=== PATIENT | male | born 1960 | race African-American/Black ===

== ENCOUNTER 2018-11-25 20:08 | Inpatient (IN) | payer BC, OTHER ==
[~2018-11-25] VITALS: Ht 167.6 cm; Wt 86.4 kg
[~2018-11-25 20:08] MED LIST: DILT180C3 PO; METF-414 PO; METO25TA6 PO; PRAV40TA58 PO; PRED1TAB PO; PROG1 PO; RANI300T4 PO; TAMS0.4C31 PO
[2018-11-25] MEDS ORDERED: ONDANSETRON HCL 4MG/2ML INJ ONE (20:53)
[2018-11-25] MEDS ORDERED: ONDANSETRON HCL 4MG/2ML INJ IV ONE (21:30)
[2018-11-25] MEDS ORDERED: ASPIRIN 81MG TABLET PO ONE ×2 (21:30→22:45)
[2018-11-25 21:35] LABS: CLARITY URINE CLEAR (CLEAR); COLOR URINE YELLOW (YELLOW); KETONES URINE NEGATIVE (NEGATIVE); LEUKOCYTE ESTERASE URINE NEGATIVE (NEGATIVE); NITRITE URINE NEGATIVE (NEGATIVE); OCCULT BLOOD URINE NEGATIVE (NEGATIVE); PH URINE 6.5 (4.5-8.0); PROTEIN URINE NEGATIVE (NEGATIVE); SPECIFIC GRAVITY URINE 1.005 (1.005-1.030); UROBILINOGEN URINE 0.2 E.U./dL (0.2-1.0)
[2018-11-25 21:38] LABS: HEMATOCRIT. 45.3 % (42.0-52.0); HEMOGLOBIN. 15.7 g/dL (14.0-18.0); MEAN CORPUSCULAR HEMOGLOBIN 35.3 pg (28.0-32.0); MEAN CORPUSCULAR VOLUME 102.1 fL (80.0-94.0); MEAN PLATELET VOLUME 8.9 fl (7.4-10.4); PLATELET 413 x1000/uL (130-400); RED BLOOD CELL COUNT 4.44 mill/uL (4.7-6.1); RED CELL DISTRIBUTION WIDTH 15.6 % (11.6-14.6)
[2018-11-25 21:42] LABS: CHLORIDE 91 mEq/L (98-107); INR 1.1; PROTHROMBIN TIME 10.6 sec (9.1-11.1)
[2018-11-25] MEDS ORDERED: SODIUM CHLORIDE 0.9% 1,000 ML IV ONE ×2 (21:45→22:15)
[2018-11-25 21:46] LABS: ETHANOL BLOOD 13 mg/dL
[2018-11-25 21:49] LABS: *AMPHETAMINES SCREEN URINE NEGATIVE (NEGATIVE); *BARBITURATES SCREEN URINE NEGATIVE (NEGATIVE); *BENZODIAZEPINES SCREEN URINE NEGATIVE (NEGATIVE); *COCAINE SCREEN URINE NEGATIVE (NEGATIVE); METHADONE URINE SCREEN NEGATIVE (NEGATIVE); OPIATES URINE SCREEN NEGATIVE (NEGATIVE); PHENCYCLIDINE URINE SCREEN NEGATIVE (NEGATIVE)
[2018-11-25 21:50] LABS: CANNABINOID URINE SCREEN NEGATIVE (NEGATIVE)
[2018-11-25 22:02] LABS: PLATELET ESTIMATE INCREASED
[2018-11-25] MEDS ORDERED: MAGNESIUM/ALUMINUM HYDROXIDE/SIMETHICONE 30ML UDC PO PRN (23:45)
[2018-11-25] MEDS ORDERED: DIPHENHYDRAMINE 50MG/ML VIAL IV PRN (23:45)
[2018-11-25] MEDS ORDERED: ONDANSETRON HCL 4MG/2ML INJ IV PRN (23:45)
[2018-11-25] MEDS ORDERED: DEXTROSE 50% WATER 50ML SYRINGE IV PRN ×2 (23:45)
[2018-11-25] MEDS ORDERED: ACETAMINOPHEN 325MG TABLET PO PRN (23:45)
[2018-11-26] VITALS (8 sets, daily range): BP systolic 112–143; BP diastolic 65–93
[2018-11-26] MEDS ORDERED: DILTIAZEM HCL 180MG CAPSULE CD 24HR PO SCH (01:00)
[2018-11-26] MEDS ORDERED: REPA1TAB5 PO (03:41)
[2018-11-26] MEDS ORDERED: B12/1TAB MT (03:41)
[2018-11-26] MEDS: SODIUM CHLORIDE 0.9% INJ 3ML FLUSH IVF SCH ×3 (05:07→21:45)
[2018-11-26] MEDS: BLOOD SUGAR DIAGNOSTIC STRIP TEST SCH ×4 (06:16→21:45)
[2018-11-26] MEDS ORDERED: BLOOD SUGAR DIAGNOSTIC STRIP TEST SCH (07:20)
[2018-11-26] MEDS: INSULIN LISPRO 100 UNITS/ML SUBCUT SCH ×4 (07:50→21:00)
[2018-11-26] MEDS ORDERED: METFORMIN HCL 500MG TABLET PO SCH (07:50)
[2018-11-26] MEDS: CYANOCOBALAMIN 1000MCG TABLET PO SCH (08:44)
[2018-11-26] MEDS: METOPROLOL TARTRATE 50MG TABLET PO SCH ×2 (08:45→21:45)
[2018-11-26] MEDS: FAMOTIDINE 20MG TABLET PO SCH ×2 (08:45→18:39)
[2018-11-26] MEDS: PREDNISONE 5MG TABLET PO SCH (08:45)
[2018-11-26] MEDS: APIXABAN 5 MG TABLET PO SCH ×2 (08:45→18:39)
[2018-11-26] MEDS: TACROLIMUS 1MG CAPSULE PO SCH (08:46)
[2018-11-26] MEDS: TAMSULOSIN HCL 0.4MG SR CAPSULE PO SCH (08:46)
[2018-11-26] MEDS: REPAGLINIDE 1MG TABLET PO SCH ×3 (08:46→18:39)
[2018-11-26] MEDS: ASPIRIN 81MG EC TABLET PO SCH (08:47)
[2018-11-26] MEDS ORDERED: TACROLIMUS 1MG CAPSULE PO SCH ×2 (09:00→17:00)
[2018-11-26] MEDS ORDERED: ASPIRIN 325MG EC TABLET PO SCH (09:00)
[2018-11-26] MEDS ORDERED: METOPROLOL TARTRATE 25MG TABLET PO SCH (09:00)
[2018-11-26] MEDS ORDERED: PREDNISONE 1MG TABLET PO SCH (09:00)
[2018-11-26] MEDS ORDERED: LORAZEPAM 2MG/ML CPJ IV NR (11:15)
[2018-11-26] MEDS ORDERED: INFLUENZA VIRUS VACCINE(AFLURIA) 0.5ML SYR IM ONE (12:00)
[2018-11-26] MEDS ORDERED: ATORVASTATIN CALCIUM 40MG TABLET PO SCH (21:00)
[2018-11-26] MEDS ORDERED: ATORVASTATIN CALCIUM 20MG TABLET PO SCH (21:00)
[2018-11-27 00:12] VITALS: BP 115/73
[2018-11-27 04:00] VITALS: BP 124/80
[2018-11-27] MEDS: SODIUM CHLORIDE 0.9% INJ 3ML FLUSH IVF SCH (05:44)
[2018-11-27] MEDS: BLOOD SUGAR DIAGNOSTIC STRIP TEST SCH (06:09)
[2018-11-27 06:35] LABS: HEMATOCRIT. 34.9 % (42.0-52.0); HEMOGLOBIN. 12.1 g/dL (14.0-18.0); MEAN CORPUSCULAR HEMOGLOBIN 35.1 pg (28.0-32.0); MEAN CORPUSCULAR VOLUME 101.2 fL (80.0-94.0); MEAN PLATELET VOLUME 9.1 fl (7.4-10.4); PLATELET 347 x1000/uL (130-400); RED BLOOD CELL COUNT 3.45 mill/uL (4.7-6.1); RED CELL DISTRIBUTION WIDTH 15.7 % (11.6-14.6)
[2018-11-27 06:45] LABS: CHLORIDE 101 mEq/L (98-107)
[2018-11-27 06:57] LABS: PHOSPHORUS 3.3 mg/dL (2.5-4.9)
[2018-11-27] MEDS: INSULIN LISPRO 100 UNITS/ML SUBCUT SCH (07:50)
[2018-11-27] MEDS: CYANOCOBALAMIN 1000MCG TABLET PO SCH (07:50)
[2018-11-27] MEDS: REPAGLINIDE 1MG TABLET PO SCH (07:50)
[2018-11-27 08:38] VITALS: BP 124/84
[2018-11-27] MEDS: METOPROLOL TARTRATE 50MG TABLET PO SCH (09:00)
[2018-11-27] MEDS: ASPIRIN 81MG EC TABLET PO SCH (09:19)
[2018-11-27] MEDS: APIXABAN 5 MG TABLET PO SCH (09:19)
[2018-11-27] MEDS: FAMOTIDINE 20MG TABLET PO SCH (09:20)
[2018-11-27] MEDS: TACROLIMUS 1MG CAPSULE PO SCH (09:20)
[2018-11-27] MEDS: TAMSULOSIN HCL 0.4MG SR CAPSULE PO SCH (09:20)
[2018-11-27] MEDS: PREDNISONE 5MG TABLET PO SCH (09:20)
[2018-11-27] MEDS ORDERED: POTASSIUM CHLORIDE 20MEQ TABLET SR PO NR (11:00)
[2018-11-27] MEDS ORDERED: MAGNESIUM OXIDE 400MG TABLET PO SCH (11:00)
[2018-11-27 12:10] VITALS: BP 125/82
[2018-11-27] MEDS ORDERED: MAGNESIUM 2 G PREMIX 50 ML IV NR (13:00)
[2018-11-27 13:02] VITALS: BP 125/82
[2018-11-27 13:13] LABS: PLATELET ESTIMATE NORMAL
== END 2018-11-27 13:35 | disposition home or self-care (01) | DRG 64 ==
LOC: ER 20:08 → EDBEDREQ 22:41 → EDBEDREQTM 22:41 → ENRESERV 11-26 02:15 → 6WST 11-26 02:40
PROVIDERS: ADMIT Internal Medicine; ATTEND Internal Medicine
DX: I63.9 Cerebral infarction, unspecified (principal); N18.6 End stage renal disease; E46 Unspecified protein-calorie malnutrition; E87.1 Hypo-osmolality and hyponatremia; E87.2 Acidosis; I13.11 Hypertensive heart and chronic kidney disease without heart failure, with stage 5 chronic kidney disease, or end stage renal disease; Z94.0 Kidney transplant status; D64.9 Anemia, unspecified; D75.89 Other specified diseases of blood and blood-forming organs; E11.22 Type 2 diabetes mellitus with diabetic chronic kidney disease; E11.649 Type 2 diabetes mellitus with hypoglycemia without coma; E78.00 Pure hypercholesterolemia, unspecified; E78.5 Hyperlipidemia, unspecified; E83.42 Hypomagnesemia; E87.6 Hypokalemia; I48.0 Paroxysmal atrial fibrillation; Z60.2 Problems related to living alone; Z96.643 Presence of artificial hip joint, bilateral; Z80.9 Family history of malignant neoplasm, unspecified; Z82.49 Family history of ischemic heart disease and other diseases of the circulatory system; Z90.81 Acquired absence of spleen; Z99.2 Dependence on renal dialysis; Z79.899 Other long term (current) drug therapy; Z68.30 Body mass index [BMI] 30.0-30.9, adult
CPT/HCPCS: 36415; 70551; 71045; 80061; 80305; 80320; 82010; 82962; 83036; 83605; 83735; 83880; 84100; 84484; 90686; 93005; 93880; 96374; 97162; 97165; 99285; J2060; J2405; J3475; J7507; J7512; G0480

== ENCOUNTER 2020-03-07 06:51 | Inpatient (IN) | payer BC, MEDICAID ==
[~2020-03-07] VITALS: Ht 182.9 cm; Wt 78.5 kg
[~2020-03-07 06:51] MED LIST changes: -DILT180C3 PO; +DILT180C87 PO; +FLUC200T51 MT; +LEVO500T2 MT; -METF-414 PO; -PRED1TAB PO; -PROG1 PO; +REPA1TAB5 PO
[2020-03-07] MEDS ORDERED: SODIUM CHLORIDE 0.9% 1,000 ML IV ONE (06:59)
[2020-03-07 07:49] LABS: HEMATOCRIT. 43.9 % (42.0-52.0); HEMOGLOBIN. 14.6 g/dL (14.0-18.0); MEAN CORPUSCULAR HEMOGLOBIN 29.6 pg (28.0-32.0); MEAN CORPUSCULAR VOLUME 89.1 fL (80.0-94.0); MEAN PLATELET VOLUME 10.1 fl (7.4-10.4); PLATELET 319 x1000/uL (130-400); RED BLOOD CELL COUNT 4.93 mill/uL (4.7-6.1); RED CELL DISTRIBUTION WIDTH 17.3 % (11.6-14.6)
[2020-03-07 08:01] LABS: PROTHROMBIN TIME 10.8 sec (9.6-11.0)
[2020-03-07 08:18] LABS: CLARITY URINE CLEAR (CLEAR); COLOR URINE YELLOW (YELLOW); KETONES URINE NEGATIVE (NEGATIVE); LEUKOCYTE ESTERASE URINE 1+ (NEGATIVE); NITRITE URINE NEGATIVE (NEGATIVE); OCCULT BLOOD URINE 1+ (NEGATIVE); PROTEIN URINE TRACE (NEGATIVE); SPECIFIC GRAVITY URINE 1.021 (1.005-1.030); UROBILINOGEN URINE 0.2 E.U./dL (0.2-1.0)
[2020-03-07 08:25] LABS: BG BASE EXCESS -9.7 mmol/L (-2.0-2.0); BG CARBOXYHEMOGLOBIN 0.3 % (0.5-1.5); BG DEOXYHEMOGLOBIN 3.1 % (0.0-5.0); BG FRACTION INSPIRED OXYGEN 50; BG METHEMOGLOBIN 0.2 % (0.0-1.5); BG OXYGEN SATURATION 96.9 % (92.0-98.5); BG OXYHEMOGLOBIN 96.4 % (94.0-97.0); BG PCO2 29.8 mmHg (35.0-45.0); BG PH 7.321 (7.350-7.450); BG PO2 96.7 mmHg (75.0-100.0); BG SAMPLE SITE RIGHT RADIAL; BG TOTAL HEMOGLOBIN 12.8 g/dL (12.0-18.0); BG VENT MODE MASK - SIMPLE
[2020-03-07] MEDS ORDERED: CEFTRIAXONE 1 G PREMIX 50 ML IV ONE (08:30)
[2020-03-07 08:39] LABS: *AMPHETAMINES SCREEN URINE NEGATIVE (NEGATIVE)
[2020-03-07 08:40] LABS: *BARBITURATES SCREEN URINE NEGATIVE (NEGATIVE); *BENZODIAZEPINES SCREEN URINE NEGATIVE (NEGATIVE); *COCAINE SCREEN URINE NEGATIVE (NEGATIVE); METHADONE URINE SCREEN NEGATIVE (NEGATIVE); OPIATES URINE SCREEN NEGATIVE (NEGATIVE); PHENCYCLIDINE URINE SCREEN NEGATIVE (NEGATIVE)
[2020-03-07 08:41] LABS: CANNABINOID URINE SCREEN NEGATIVE (NEGATIVE)
[2020-03-07 08:42] LABS: CHLORIDE 91 mEq/L (98-107)
[2020-03-07 08:46] LABS: ETHANOL BLOOD < 10 mg/dL
[2020-03-07] MEDS ORDERED: SODIUM BICARBONATE 8.4% 1 MEQ/ML 50ML SYR IV ONE (09:00)
[2020-03-07] MEDS ORDERED: DEXTROSE 50% WATER 50ML SYRINGE IV ONE (09:00)
[2020-03-07] MEDS ORDERED: CALCIUM CHLORIDE 1GM/10ML SYR IV ONE (09:00)
[2020-03-07] MEDS: INSULIN REGULAR (HUMULIN R) 300UNITS/3ML IV ONE ×2 (09:30→10:16)
[2020-03-07 10:23] LABS: PLATELET ESTIMATE NORMAL
[2020-03-07] MEDS ORDERED: DEXTROSE 50% WATER 50ML SYRINGE IV PRN (12:00)
[2020-03-07] MEDS ORDERED: ACETAMINOPHEN 325MG TABLET PO PRN (12:00)
[2020-03-07] MEDS ORDERED: HYDRALAZINE 20MG/ML VIAL IV PRN (12:00)
[2020-03-07] MEDS: PREDNISONE 20MG TABLET PO SCH (12:33)
[2020-03-07] MEDS: SODIUM CHLORIDE 0.9% 1,000 ML IV SCH (13:16)
[2020-03-07] MEDS: BLOOD SUGAR DIAGNOSTIC STRIP TEST SCH ×3 (13:29→21:15)
[2020-03-07] MEDS: ONDANSETRON HCL 4MG/2ML INJ IV PRN (13:36)
[2020-03-07] MEDS: INSULIN LISPRO 100 UNITS/ML SUBCUT SCH ×3 (14:46→21:20)
[2020-03-07] MEDS: SODIUM POLYSTYRENE SULFONATE 15 G/60 ML BOT PO NR ×2 (14:46→17:47)
[2020-03-07] MEDS ORDERED: IPRATROPIUM/ALBUTEROL 0.5-3(2.5)MG/3ML NEB HHN PRN (15:45)
[2020-03-07] MEDS ORDERED: TRAZODONE HCL 50MG TABLET PO PRN (21:00)
[2020-03-07] MEDS: PANTOPRAZOLE SODIUM 40 MG/VIAL IV SCH (21:39)
[2020-03-07 22:00] VITALS: BP 143/83
[2020-03-08] VITALS (12 sets, daily range): BP systolic 89–143; BP diastolic 37–78
[2020-03-08] MEDS: SODIUM CHLORIDE 0.9% 1,000 ML IV SCH ×3 (00:33→17:09)
[2020-03-08] MEDS: ONDANSETRON HCL 4MG/2ML INJ IV PRN ×2 (02:35→15:54)
[2020-03-08] MEDS ORDERED: ALTEPLASE 2MG/VIAL ITC NR (05:15)
[2020-03-08] MEDS: BLOOD SUGAR DIAGNOSTIC STRIP TEST SCH ×4 (08:16→21:20)
[2020-03-08] MEDS: INSULIN LISPRO 100 UNITS/ML SUBCUT SCH ×4 (08:27→21:21)
[2020-03-08] MEDS: HEPARIN 5000 UNITS/ML VIAL SUBCUT SCH ×2 (09:00→21:20)
[2020-03-08] MEDS ORDERED: TACROLIMUS 1MG CAPSULE PO SCH (10:00)
[2020-03-08] MEDS ORDERED: INSULIN GLARGINE UD 100 UNITS/ML SYR SUBCUT SCH (10:00)
[2020-03-08] MEDS ORDERED: DILTIAZEM HCL 5MG/ML 5ML VIAL IV NR (13:00)
[2020-03-08] MEDS: PREDNISONE 20MG TABLET PO SCH (13:22)
[2020-03-08] MEDS: TACROLIMUS 1MG CAPSULE PO SCH ×2 (13:22→17:08)
[2020-03-08] MEDS: PANTOPRAZOLE SODIUM 40 MG/VIAL IV SCH ×2 (13:27→21:20)
[2020-03-08] MEDS ORDERED: DILTIAZEM HCL 125 MG in DEXT 5% WATER 100 ML IV SCH (14:00)
[2020-03-08] MEDS ORDERED: CEFEPIME 1,000 MG in DEXTROSE 5% WATER 50 ML IV SCH (14:00)
[2020-03-08 18:07] LABS: CHLORIDE 101 mEq/L (98-107)
[2020-03-08 18:12] LABS: HEMATOCRIT. 35.1 % (42.0-52.0); HEMOGLOBIN. 11.7 g/dL (14.0-18.0); MEAN CORPUSCULAR HEMOGLOBIN 29.6 pg (28.0-32.0); MEAN CORPUSCULAR VOLUME 89.1 fL (80.0-94.0); MEAN PLATELET VOLUME 10.5 fl (7.4-10.4); PLATELET 173 x1000/uL (130-400); RED BLOOD CELL COUNT 3.94 mill/uL (4.7-6.1); RED CELL DISTRIBUTION WIDTH 16.9 % (11.6-14.6)
[2020-03-08 19:31] LABS: PLATELET ESTIMATE NORMAL
[2020-03-09] VITALS (12 sets, daily range): BP systolic 100–148; BP diastolic 52–86
[2020-03-09] MEDS: SODIUM CHLORIDE 0.9% 1,000 ML IV SCH ×3 (03:48→22:41)
[2020-03-09 07:05] LABS: HEMATOCRIT. 28.9 % (42.0-52.0); HEMOGLOBIN. 9.8 g/dL (14.0-18.0); MEAN CORPUSCULAR HEMOGLOBIN 29.7 pg (28.0-32.0); MEAN CORPUSCULAR VOLUME 87.4 fL (80.0-94.0); MEAN PLATELET VOLUME 9.9 fl (7.4-10.4); PLATELET 229 x1000/uL (130-400); RED CELL DISTRIBUTION WIDTH 16.8 % (11.6-14.6)
[2020-03-09 07:06] LABS: CHLORIDE 104 mEq/L (98-107)
[2020-03-09] MEDS: BLOOD SUGAR DIAGNOSTIC STRIP TEST SCH ×4 (07:30→21:00)
[2020-03-09] MEDS: PREDNISONE 20MG TABLET PO SCH (08:37)
[2020-03-09] MEDS: HEPARIN 5000 UNITS/ML VIAL SUBCUT SCH ×2 (08:39→21:00)
[2020-03-09] MEDS: INSULIN LISPRO 100 UNITS/ML SUBCUT SCH ×4 (08:42→22:04)
[2020-03-09] MEDS: TACROLIMUS 1MG CAPSULE PO SCH ×2 (08:50→17:03)
[2020-03-09] MEDS ORDERED: METOPROLOL TARTRATE 25MG TABLET PO NR (10:15)
[2020-03-09 10:52] LABS: PLATELET ESTIMATE NORMAL
[2020-03-09] MEDS: PANTOPRAZOLE SODIUM 40 MG/VIAL IV SCH ×2 (13:01→22:02)
[2020-03-09] MEDS: MAGNESIUM GLUCONATE 500MG TABLET PO SCH ×2 (13:01→17:03)
[2020-03-09] MEDS: INSULIN GLARGINE UD 100 UNITS/ML SYR SUBCUT SCH (13:03)
[2020-03-09] MEDS: AZITHROMYCIN 500 MG TABLET PO SCH (17:03)
[2020-03-09] MEDS: METOPROLOL TARTRATE 25MG TABLET PO SCH (22:03)
[2020-03-10] VITALS (22 sets, daily range): BP systolic 100–160; BP diastolic 21–82
[2020-03-10 05:35] LABS: CHLORIDE 111 mEq/L (98-107); HEMATOCRIT. 26.5 % (42.0-52.0); HEMOGLOBIN. 8.8 g/dL (14.0-18.0); MEAN CORPUSCULAR HEMOGLOBIN 29.5 pg (28.0-32.0); MEAN CORPUSCULAR VOLUME 88.7 fL (80.0-94.0); MEAN PLATELET VOLUME 9.3 fl (7.4-10.4); PLATELET 231 x1000/uL (130-400); RED BLOOD CELL COUNT 2.99 mill/uL (4.7-6.1); RED CELL DISTRIBUTION WIDTH 16.8 % (11.6-14.6)
[2020-03-10] MEDS: BLOOD SUGAR DIAGNOSTIC STRIP TEST SCH ×4 (07:30→21:00)
[2020-03-10] MEDS: INSULIN LISPRO 100 UNITS/ML SUBCUT SCH ×4 (08:00→21:37)
[2020-03-10] MEDS ORDERED: SODIUM BICARBONATE 4% (2.4MEQ) 5ML VIAL IV ONE (08:48)
[2020-03-10] MEDS ORDERED: FENTANYL CITRATE/PF 50MCG/ML 2ML VIAL ONE ×2 (08:48→10:30)
[2020-03-10] MEDS ORDERED: LIDOCAINE HCL 1% 20ML VIAL (Pyxis) INJ ONE (08:48)
[2020-03-10] MEDS: METOPROLOL TARTRATE 25MG TABLET PO SCH ×2 (09:00→21:23)
[2020-03-10] MEDS: MAGNESIUM GLUCONATE 500MG TABLET PO SCH ×2 (09:00→17:55)
[2020-03-10] MEDS: HEPARIN 5000 UNITS/ML VIAL SUBCUT SCH (09:00)
[2020-03-10] MEDS: PREDNISONE 20MG TABLET PO SCH ×2 (09:00→12:48)
[2020-03-10] MEDS: TACROLIMUS 1MG CAPSULE PO SCH ×3 (09:00→17:55)
[2020-03-10] MEDS: AZITHROMYCIN 500 MG TABLET PO SCH ×2 (09:00→12:48)
[2020-03-10] MEDS: SODIUM CHLORIDE 0.9% 1,000 ML IV SCH (09:56)
[2020-03-10] MEDS: INSULIN GLARGINE UD 100 UNITS/ML SYR SUBCUT SCH ×2 (09:57→12:49)
[2020-03-10] MEDS ORDERED: FENTANYL CITRATE/PF 50MCG/ML 2ML VIAL IV ONE (11:15)
[2020-03-10 11:18] LABS: PLATELET ESTIMATE NORMAL
[2020-03-10] MEDS: PANTOPRAZOLE SODIUM 40 MG/VIAL IV SCH (12:42)
[2020-03-10] MEDS ORDERED: MAGNESIUM 2 G PREMIX 50 ML IV NR (14:00)
[2020-03-10 15:21] LABS: HEMATOCRIT 29.7 % (42.0-52.0)
[2020-03-11] VITALS (12 sets, daily range): BP systolic 98–147; BP diastolic 60–93
[2020-03-11] MEDS: SODIUM CHLORIDE 0.9% 1,000 ML IV SCH ×2 (00:55→17:57)
[2020-03-11 07:08] LABS: HEMOGLOBIN. 10.2 g/dL (14.0-18.0); MEAN PLATELET VOLUME 9.7 fl (7.4-10.4); PLATELET 258 x1000/uL (130-400); RED BLOOD CELL COUNT 3.42 mill/uL (4.7-6.1); RED CELL DISTRIBUTION WIDTH 16.8 % (11.6-14.6)
[2020-03-11 07:15] LABS: CHLORIDE 107 mEq/L (98-107)
[2020-03-11] MEDS: BLOOD SUGAR DIAGNOSTIC STRIP TEST SCH ×4 (07:30→21:24)
[2020-03-11] MEDS: INSULIN LISPRO 100 UNITS/ML SUBCUT SCH ×4 (08:00→21:34)
[2020-03-11] MEDS: TACROLIMUS 1MG CAPSULE PO SCH ×2 (08:57→17:49)
[2020-03-11] MEDS: PREDNISONE 20MG TABLET PO SCH (08:58)
[2020-03-11] MEDS: AZITHROMYCIN 500 MG TABLET PO SCH (08:58)
[2020-03-11] MEDS: METOPROLOL TARTRATE 25MG TABLET PO SCH ×2 (08:58→21:24)
[2020-03-11] MEDS: MAGNESIUM GLUCONATE 500MG TABLET PO SCH ×2 (08:58→17:48)
[2020-03-11] MEDS: PANTOPRAZOLE SODIUM 40 MG/VIAL IV SCH ×2 (10:50→21:23)
[2020-03-11] MEDS: INSULIN GLARGINE UD 100 UNITS/ML SYR SUBCUT SCH (10:52)
[2020-03-11 13:26] LABS: PLATELET ESTIMATE NORMAL
[2020-03-12] VITALS (9 sets, daily range): BP systolic 112–151; BP diastolic 39–98
[2020-03-12 06:09] LABS: HEMATOCRIT. 29.4 % (42.0-52.0); HEMOGLOBIN. 9.8 g/dL (14.0-18.0); MEAN CORPUSCULAR HEMOGLOBIN 29.6 pg (28.0-32.0); MEAN CORPUSCULAR VOLUME 88.4 fL (80.0-94.0); MEAN PLATELET VOLUME 9.6 fl (7.4-10.4); PLATELET 257 x1000/uL (130-400); RED BLOOD CELL COUNT 3.33 mill/uL (4.7-6.1); RED CELL DISTRIBUTION WIDTH 16.2 % (11.6-14.6)
[2020-03-12] MEDS: SODIUM CHLORIDE 0.9% 1,000 ML IV SCH (06:30)
[2020-03-12 06:42] LABS: CHLORIDE 110 mEq/L (98-107)
[2020-03-12] MEDS: INSULIN LISPRO 100 UNITS/ML SUBCUT SCH ×2 (08:00→12:42)
[2020-03-12] MEDS: BLOOD SUGAR DIAGNOSTIC STRIP TEST SCH ×2 (08:04→11:39)
[2020-03-12] MEDS: METOPROLOL TARTRATE 25MG TABLET PO SCH (09:44)
[2020-03-12] MEDS: MAGNESIUM GLUCONATE 500MG TABLET PO SCH (09:44)
[2020-03-12] MEDS: PREDNISONE 20MG TABLET PO SCH (09:44)
[2020-03-12] MEDS: TACROLIMUS 1MG CAPSULE PO SCH (09:45)
[2020-03-12] MEDS: PANTOPRAZOLE SODIUM 40 MG/VIAL IV SCH (09:45)
[2020-03-12] MEDS: INSULIN GLARGINE UD 100 UNITS/ML SYR SUBCUT SCH (09:46)
[2020-03-12 13:09] LABS: PLATELET ESTIMATE NORMAL
== END 2020-03-12 16:29 | disposition home or self-care (01) | DRG 871 ==
LOC: ER 06:51 → EDBEDREQ 07:42 → EDBEDREQTM 09:10 → EDBEDREQSVC 20:25 → EDBEDREQTM 20:25 → ENRESERV 20:51 → 5EST 21:48
PROVIDERS: ADMIT Internal Medicine; ATTEND Internal Medicine
PROC: 5A1D70Z Performance of Urinary Filtration, Intermittent, Less than 6 Hours Per Day (ICD-10-PCS; principal; 2020-03-07)
PROC: 06HN33Z Insertion of Infusion Device into Left Femoral Vein, Percutaneous Approach (ICD-10-PCS; 2020-03-07)
PROC: B54CZZA Ultrasonography of Left Lower Extremity Veins, Guidance (ICD-10-PCS; 2020-03-07)
PROC: 5A1D70Z Performance of Urinary Filtration, Intermittent, Less than 6 Hours Per Day (ICD-10-PCS; 2020-03-08)
PROC: 0TB33ZX Excision of Right Kidney Pelvis, Percutaneous Approach, Diagnostic (ICD-10-PCS; 2020-03-10)
DX: A41.9 Sepsis, unspecified organism (principal); J96.01 Acute respiratory failure with hypoxia; N17.0 Acute kidney failure with tubular necrosis; I63.9 Cerebral infarction, unspecified; N18.6 End stage renal disease; E46 Unspecified protein-calorie malnutrition; N39.0 Urinary tract infection, site not specified; E87.2 Acidosis; E87.1 Hypo-osmolality and hyponatremia; K92.2 Gastrointestinal hemorrhage, unspecified; J98.11 Atelectasis; I13.2 Hypertensive heart and chronic kidney disease with heart failure and with stage 5 chronic kidney disease, or end stage renal disease; T86.12 Kidney transplant failure; J90 Pleural effusion, not elsewhere classified; A04.5 Campylobacter enteritis; E86.0 Dehydration; E87.5 Hyperkalemia; I44.0 Atrioventricular block, first degree; E11.65 Type 2 diabetes mellitus with hyperglycemia; E11.22 Type 2 diabetes mellitus with diabetic chronic kidney disease; I48.0 Paroxysmal atrial fibrillation; I50.9 Heart failure, unspecified; I95.1 Orthostatic hypotension; K44.9 Diaphragmatic hernia without obstruction or gangrene; N40.0 Benign prostatic hyperplasia without lower urinary tract symptoms; Z96.649 Presence of unspecified artificial hip joint; E88.09 Other disorders of plasma-protein metabolism, not elsewhere classified; Y83.0 Surgical operation with transplant of whole organ as the cause of abnormal reaction of the patient, or of later complication, without mention of misadventure at the time of the procedure; I25.2 Old myocardial infarction; Z79.01 Long term (current) use of anticoagulants; Z86.73 Personal history of transient ischemic attack (TIA), and cerebral infarction without residual deficits; Z87.891 Personal history of nicotine dependence; Z90.49 Acquired absence of other specified parts of digestive tract; Z93.3 Colostomy status; Z99.2 Dependence on renal dialysis; Z03.818 Encounter for observation for suspected exposure to other biological agents ruled out; Z79.899 Other long term (current) drug therapy
CPT/HCPCS: 36415; 36600; 71045; 76937; 76942; 78580; 80048; 80053; 80197; 80305; 80320; 81003; 82270; 82375; 82550; 82570; 82805; 82962; 83036; 83605; 83735; 83880; 84134; 84145; 84300; 84484; 84550; 85014; 85018; 85025; 87015; 87045; 87427; 87449; 87493; 88305; 88346; 88348; 89055; 93005; 93306; 93971; 96365; 99285; C1752; C9113; J0692; J0696; J1644; J1815; J2405; J2997; J3010; J3475; J3490; J7030; J7060; J7507; J7512; G0480; U0003-CS